=== PATIENT | male | born 1965 | race Caucasian/White ===

== ENCOUNTER 2016-12-08 14:29 | Emergency (ER) | payer OTHER ==
[~2016-12-08] VITALS: Ht 185.4 cm; Wt 108.9 kg
--- NOTE | ~2016-12-08 | EKG ---
PATIENT: JACLYN SPENCE UNIT #: [id number] Ventricular Rate: 70 BPM Atrial Rate: 70 BPM P-R Interval: 164 ms QRS Duration: 90 ms Q-T Interval: 392 ms QTC Calculation(Bezet): 423 ms P [place]: 40 degrees Calculated R [place]: 12 degrees Calculated T [place]: 30 degrees Diagnosis Line: Normal sinus rhythm Diagnosis Line: Normal ECG Diagnosis Line: No previous ECGs available Diagnosis Line: Confirmed by RONEY RUTHERFORD MD ([id number]) on Diagnosis Line: 12/11/2016 10:47:34 AM INTERPRETING MD: KRISH CARRERA
[~2016-12-08 14:29] MED LIST: ASPIRIN81 MG PO; COREG12.5 MG PO; KLONOPIN0.5 M2 PO; MEDROL4 MG/DOSE- PO; PENICILLIN V P500 MG PO; VOLTAREN75 MG PO; ZOCOR20 MG PO; [UNRECOGNIZED DRUG - REMARK]
== END 2016-12-08 14:50 | disposition left against medical advice (07) ==
LOC: CED 14:29
DX: Z53.21 Procedure and treatment not carried out due to patient leaving prior to being seen by health care provider (principal)
CPT/HCPCS: 93005